=== PATIENT | female | born 1985 | race Caucasian/White ===

== ENCOUNTER 2021-12-25 10:35 | Emergency (ER) | payer MEDICAID ==
[~2021-12-25] VITALS: Ht 170.2 cm; Wt 100.0 kg
[2021-12-25 11:35] VITALS: BP 155/138
[2021-12-25] MEDS ORDERED: NEOM10DR45 LEFT EAR (11:42)
== END 2021-12-25 11:54 | disposition home or self-care (01) ==
LOC: ER 10:39
DX: H00.011 Hordeolum externum right upper eyelid (principal); H60.92 Unspecified otitis externa, left ear; G56.03 Carpal tunnel syndrome, bilateral upper limbs; Z79.2 Long term (current) use of antibiotics; Z59.00 Homelessness unspecified
CPT/HCPCS: 29260; 99283; L3908

== ENCOUNTER 2022-03-17 22:53 | Emergency (ER) | payer MEDICAID ==
[~2022-03-17] VITALS: Ht 175.3 cm; Wt 95.0 kg
[2022-03-18 00:23] VITALS: BP 139/93
--- NOTE | 2022-03-18 08:24 | NUR ---
Attempted to call patient back to a room x3, patient was not in lobby. Patient does not have a listed phone number, unable to reach out to patient. Patient is also homeless. Dr. Kelly aware of patient not being in lobby.
== END 2022-03-18 08:35 | disposition left against medical advice (07) ==
LOC: ER 22:54
DX: F29 Unspecified psychosis not due to a substance or known physiological condition (principal); Z53.21 Procedure and treatment not carried out due to patient leaving prior to being seen by health care provider